=== PATIENT | female | born 1985 | race Caucasian/White ===

== ENCOUNTER 2017-08-04 18:15 | Emergency (ER) | payer OTHER ==
[2017-08-04] MEDS ORDERED: Ondansetron HCl/PF 4 MG/2 ML Vial ONE (18:34)
[2017-08-04 18:45] LABS: #Basophils 0.1 thou/uL (0.0-0.2); #Eosinphils 0.2 thou/uL (0.0-0.7); #Monocytes 0.7 thou/uL (0.11-0.59); #Neutrophils 5.5 thou/uL (1.40-6.50); %Basophils 0.7 % (0.0-1.0); %Eosinophils 2.4 % (0.0-10.0); %Lymphocytes 23.6 % (21.0-51.0); %Monocytes 8.6 % (0.0-10.0); Hematocrit 44.9 % (36.0-47.0); Mean Platelet Volume 8.8 fL (7.4-10.4); Red Blood Cell (RBC) Count 4.97 mill/uL (4.20-5.40); White Blood Cell (WBC) Count 8.5 thou/uL (4.8-10.8)
--- NOTE | 2017-08-04 22:56 | ULT ---
TRANSVAGINAL AND TRANSABDOMINAL PELVIC ULTRASOUND 08/04/17 INDICATION: History of IVF in June 2017 with report of four separate gestational sacs seen on a prior outside pelvic ultrasound. Patient is now having vaginal bleeding. Patient also has a history of right ovari an cyst. The beta HCG levels reported at 15,192. TECHNIQUE: A transvaginal and transabdominal pelvic ultrasound was performed utilizing valenzuela scale, color dopple r and vascular duplex with spectral analysis. FINDINGS: The uterus measures 9.6 x 4.0 x 5.7 cm. There are at least four separate intrauterine gestational sa cs demonstrated. The surrounding endometrium appears thickened and heterogeneous. No yolk sac or fet al poles are identified. The fetus labeled fetus A within the superior aspect of the endometrial canal has a mean sac d iameter of 6.4 mm giving an estimated gestational age of 5 weeks and 2 days. Fetus labeled fetus B within the central aspect of the endometrial canal has a mean sac diamet er of 6.7 mm, given estimated gestational age of 5 weeks and 3 days. Similar size is seen for fetus C with estimated gestational age of 5 weeks and 3 days. Fetus D has a similar appearing gestational age of 5 weeks and 2 days. Pérez sac diameter is 6.1 mm. The average gestational age by ultrasound of the fetus is 5 weeks and 2 days. Estimated date of deli very is 04/04/18. Clinical age was reported at 7 weeks and 5 days. The right ovary measures 3.6 x 1.7 x 2.4 cm. There is normal vascular flow to the right ovary. The l eft ovary is not well seen. Small amount of fluid is seen in the cul-de-sac. There was a right ovarian cyst measuring 1.4 x 1 x 0.8 cm. IMPRESSION: 1. Four separate intrauterine gestational sacs seen within the endometrial canal without visibl e pole or yolk sacs. There is heterogeneous material seen within the endometrial canal with th ickened endometrium which may reflect intrauterine bleeding. 2. Right ovarian cyst measuring 1.4 cm. POS: [facility]
== END 2017-08-04 21:04 | disposition home or self-care (01) ==
LOC: ERS 18:15
DX: O03.4 Incomplete spontaneous abortion without complication (principal); Z79.891 Long term (current) use of opiate analgesic
CPT/HCPCS: 76856; 84702; 85025; 86900; 86901; 96374; 96375; J2270; J2405